=== PATIENT | female | born 1995 | race Caucasian/White ===

== ENCOUNTER → 2020-03-14 | Outpatient (CLI) | payer OTHER ==
[2020-03-14 17:00] LABS: HCT 33.2 % (34.0-46.0); HGB 11.7 gm/dL (11.4-16.0); MCH 33.6 pg (25.0-35.0); MCHC 35.2 g/dL (31.0-37.0); MCV 95.5 fL (80.0-100.0); Mean Platelet Volume 7.7; Platelet Count 200 k/uL (150-450); RBC 3.48 m/uL (3.80-5.40); RDW 12.1 % (11.5-15.5); WBC 16.8 k/uL (3.8-10.6)
== END | disposition home or self-care (01) ==
LOC: LABWHC1 15:43
PROVIDERS: ATTEND Obstetrics & Gynecology
DX: Z34.82 Encounter for supervision of other normal pregnancy, second trimester (principal)
CPT/HCPCS: 36415; 85027; 86900; 86901

== ENCOUNTER 2020-05-28 04:08 | Inpatient (IN) | payer OTHER ==
[2020-05-28] MEDS ORDERED: METHYLERGONOVINE 0.2 MG/ML 1 ML AMP IM PRN (04:53)
[2020-05-28] MEDS ORDERED: TERBUTALINE 1 MG/ML VIAL SQ PRN (04:53)
[2020-05-28] MEDS ORDERED: OXYTOCIN 10 UNIT/ML 1 ML VIAL IM PRN (04:53)
[2020-05-28] MEDS ORDERED: LIDOCAINE 0.5% (PF) 5 MG/ML (50 ML SDV) SQ PRN (04:53)
[2020-05-28] MEDS ORDERED: CARBOPROST TROMETHAMINE 250 MCG/ML 1 ML AMP IM PRN (04:53)
[2020-05-28] MEDS ORDERED: AMPICILLIN 2,000 MG in SODIUM CHLORIDE 0.9% 100 ML IVPB ONE (05:00)
[2020-05-28] MEDS ORDERED: OXYTOCIN 30 UNITS/500 ML NS 30 UNIT in SALINE 1 500ML.BAG IV SCH ×2 (05:00→16:15)
[2020-05-28 05:20] LABS: Glucose,Whole Blood 84 mg/dL (75-99)
[2020-05-28] MEDS: LACTATED RINGERS 1,000 ML IV SCH ×3 (05:37→14:24)
[2020-05-28 05:38] LABS: Basophils % (A) 0 %; Eosinophils # (A) 0.1 k/uL (0-0.7); Eosinophils % (A) 1 %; HCT 34.4 % (34.0-46.0); HGB 11.4 gm/dL (11.4-16.0); Lymphocytes # (A) 2.1 k/uL (1.0-4.8); Lymphocytes % (A) 20 %; MCH 31.5 pg (25.0-35.0); MCV 95.3 fL (80.0-100.0); Mean Platelet Volume 9.5; Monocytes # (A) 0.5 k/uL (0-1.0); Monocytes % (A) 5 %; Neutrophils # (A) 7.5 k/uL (1.3-7.7); Neutrophils % (A) 72 %; Platelet Count 192 k/uL (150-450); RBC 3.61 m/uL (3.80-5.40); RDW 12.8 % (11.5-15.5); WBC 10.4 k/uL (3.8-10.6)
[2020-05-28 05:49] LABS: Amphetamine Screen,Urine Detected (NotDetected); Barbiturate Screen,Urine Not Detected (NotDetected); Benzodiazepines Screen,Urine Not Detected (NotDetected); Cocaine Screen,Urine Not Detected (NotDetected); Methadone Screen, Urine Not Detected (NotDetected); Opiate Screen,Urine Not Detected (NotDetected); Oxycodone Screen, Urine Not Detected (NotDetected); Phencyclidine Screen,Urine Not Detected (NotDetected); Tricyclic Antidepressant,Urine Not Detected (NotDetected); Urn Cannabinoid Scrn Not Detected (NotDetected)
[2020-05-28] MEDS ORDERED: SODIUM CHLORIDE 0.9% 100 ML BAG ONE (07:11)
[2020-05-28] MEDS ORDERED: ROPIVACAINE 5MG/ML 20ML VIAL ONE (07:11)
[2020-05-28] MEDS ORDERED: fentaNYL (PF) 50 MCG/ML 5 ML AMP ONE (07:11)
--- NOTE | 2020-05-28 07:27 | P.HPOB ---
History of Present Illness H&P Date: 05/28/20 Chief Complaint: Spontaneous rupture of membranes This is a 24-year-old female 3 para 1 with an estimated date of confinement of 06/02/2020, estimated gestational age of 39-2/7 weeks, who presents to labor and delivery with complaints of spontaneous rupture membranes at approximately 2 AM this morning. Began feeling contractions regularly after arrival to the hospital. Her care has been spotty. She started her at Dr. angela lewis and had an ultrasound at 10 weeks but then did not come back to see that doctor until she transferred to see me. I began her care at 25 weeks. She showed up for another visit at 29 weeks and then at 34 weeks and then this recently yesterday. With her first visit with me she told me that she had been a previous meth user but quit almost 2 years ago. Her drug screen that date did show positive for cocaine and methamphetamine. She did admit that she did take 1 head of meth about a week ago because she was stressed about her grandfather in the hospital but that was after drug screen was done. Her drug screen continued to show positive for methamphetamine even at her next visit at 34 weeks. She still denies using any methamphetamine. She did not complete her Glucola test. labs: Obstetrical ultrasound: Normal anatomy Random glucose-81 Hepatitis B surface antigen-negative Hepatitis C antibody-negative Rubella-nonimmune Syphilis antibody-negative HIV-nonreactive GC/chlamydia-negative Blood type-A- RhoGAM given at 29 weeks Group B wdgpdhtqonrvn-aknpxlh-nhmfjubmi yesterday Obstetrical history: . History of 1 vaginal delivery at 41 weeks in 2012 with an weight of 9 lbs. 11 oz. History of 1 miscarriage at 9 weeks in 2013. Gynecologic history: No history of sexual transmitted diseases Social history: She is engaged. Apparently the father of the baby is incarcerat ed and will be for the next 2 years. She states the father of the baby is a "sperm donor". 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 Patient denies using currently. Drug screen was performed in my office yesterday and results are pending. - Past Family History Mother Family Medical History: Liver Disease Additional Family Medical History / Comment(s): 2nd generation agent orange exposure, manic depression, Medications and Allergies Home Medications Medication Instructions Recorded Confirmed Type Pnv No.95/Ferrous Fum/Folic AC 1 tab PO DAILY 05/28/20 05/28/20 History [ Multivitamin Tablet] Allergies Allergy/AdvReac Type Severity Reaction Status Date / Time No Known Allergies Allergy Verified 05/28/20 04:15 Exam Osteopathic Statement: *. No significant issues noted on an osteopathic structural exam other than those noted in the History and Physical/Consult. Vital Signs Temp Pulse Resp BP Pulse Ox 05/28/20 05:25 97.6 F 76 18 130/87 97 05/28/20 04:57 97.2 F L 78 16 142/90 Intake and Output 05/27/20 05/28/20 05/28/20 22:59 06:59 14:59 Other: # Voids 1 Weight 70.76 kg HEENT: Within normal limits Heart: Regular rate and rhythm Lungs: Clear to auscultation bilaterally Abdomen: Cervix: 3-3-1/2 cm/70%/-2 station. Clear fluid is noted. Positive amnisure is noted. Extremities: Negative Homans heart tones: Reactive, category 1 Contractions: Approximately every 3 minutes Results Result Diagrams: 05/28/20 05:07 Abnormal Lab Results - Last 24 Hours (Table) 05/28/20 05/28/20 Range/Units 05:07 05:07 RBC 3.61 L (3.80-5.40) m/uL Ur Amphetamines Screen Detected H (NotDetected) U Methamphetamines Scrn Detected H (NotDetected) Assessment and Plan (1) 39 weeks gestation of Current Visit: Yes Status: Acute Code(s): Z3A.39 - 39 WEEKS GESTATION OF SNOMED Code(s): 61886279 (2) Limited care Current Visit: Yes Status: Acute Code(s): O09.30 - SUPRVSN OF PREG W INSUFFICIENT ANTENAT CARE, UNSP TRIMESTER SNOMED Code(s): 716210724 (3) Positive urine drug screen Current Visit: Yes Status: Acute Code(s): R82.5 - ELEVATED URINE LEVELS OF DRUG/MEDS/BIOL SUBST SNOMED Code(s): 306253821 Plan: Admission for active labor. Epidural anesthesia. Antibiotic prophylaxis secondary to unknown group B streptococcus. Expectant management. Will consult psychiatric social worker supervisor after delivery.
--- NOTE | 2020-05-28 08:44 | P.MSEPDOC ---
Presenting Problems - Arrival Data Date of Arrival on Unit: 05/28/20 Time of Arrival on Unit: 04:09 Mode of Transport: Wheelchair - Complaint OB-Reason for Admission/Chief Complaint: Possible Onset of Labor, Rule Out SROM Medical History - Information : 3 Para: 1 Term: 1 : 0 Abortions: Spontaneous or Elective: 1 Number of Living Children: 1 - Gestational Age Gestational Age by JANELLE (wks/days): 39 Weeks and 2 Days - History Complications: Smoker, Hx. Substance Abuse Comment: Hx meth and cocaine use, limited care Review of Systems - Review of Systems Constitutional: No problems Breast: No problems ENT: No problems Cardiovascular: No problems Respiratory: No problems Gastrointestinal: No problems Genitourinary: No problems Musculoskeletal: No problems Neurological: No problems Skin: No problems Vital Signs - Temperature Temperature: 97.6 F Temperature Source: Temporal Artery Scan - Pulse Right Supine Brachial Pulse Rate: 76 Pulse Assessment Method: Automatic Cuff - Respirations Respiratory Rate: 18 Oxygen Delivery Method: Room Air O2 Sat by Pulse Oximetry: 97 - Blood Pressure Right Arm Supine Blood Pressure: 130/87 Blood Pressure Mean: 101 Blood Pressure Source: Automatic Cuff Medical Screen Scoring (Pre) - Cervical Exam Dilation: 1-3 cm = 1 Membranes: Ruptured = 3 - Uterine Contractions Frequency: > or = 36 weeks =2 Duration: > 40 seconds = 2 - Maternal Vital Signs Maternal Temperature: N/A Maternal Blood Pressure: Diastolic > 89 = 1 Maternal Respirations: N/A - Maternal Trauma Maternal Trauma: N/A - Assessment - Baby A Baseline FHR: 135 Heart Rate - NICHD Category: Category I (Normal) = 0 NST: Reactive Position: N/A Station: N/A - Total Score - Baby A Total Score - Baby A: 9 - Total Score - Baby B Total Score - Baby B: 9 - Total Score - Baby C Total Score - Baby C: 9 - Level of Risk - Baby A Level of Risk - Baby A: Medium (6-9) - Level of Risk - Baby B Level of Risk - Baby B: Medium (6-9) - Level of Risk - Baby C Level of Risk - Baby C: Medium (6-9) Physician Notification (Pre) - Physician Notified Physician Notified Date: 05/28/20 Physician Notified Time: 04:50 New Order Received: Yes - Notification Comment Comment: Admit for labor amnisure positive Disposition - Disposition OB Disposition: Admit, LDRP Suite I agree with the RN Medical Screening Exam: Yes Case reviewed; plan agreed upon as documented in EMR&OBIX.: Yes Diagnosis: ENCOUNTER FOR FULL-TERM UNCOMPLICATED DELIVERY
[2020-05-28] MEDS: AMPICILLIN 1,000 MG in SODIUM CHLORIDE 0.9% 50 ML IVPB SCH ×2 (08:58→12:56)
[2020-05-28 15:41] VITALS: RESP 16
[2020-05-28] MEDS ORDERED: diphenhydrAMINE 50 MG/ML 1 ML VIAL IVP PRN ×2 (16:02)
[2020-05-28] MEDS ORDERED: ACETAMINOPHEN TAB 325 MG TAB PO PRN (16:02)
[2020-05-28] MEDS ORDERED: SIMETHICONE 80 MG CHEWABLE PO PRN (16:02)
[2020-05-28] MEDS ORDERED: HYDROCORTISONE 2.5% RECTAL CREAM 30 GM TUBE RECTAL PRN (16:02)
[2020-05-28] MEDS ORDERED: ZOLPIDEM 5 MG TAB PO PRN (16:02)
[2020-05-28] MEDS ORDERED: diphenhydrAMINE 25 MG CAP PO PRN (16:02)
[2020-05-28] MEDS ORDERED: BENZOCAINE/MENTHOL SPRAY 1 GM/SPRAY AEROSOL TOPICAL PRN (16:02)
[2020-05-28] MEDS ORDERED: IBUPROFEN 600 MG TAB PO PRN (16:02)
[2020-05-28] MEDS ORDERED: LANOLIN CREAM 5 GM TUBE TOPICAL PRN (16:02)
[2020-05-28] MEDS ORDERED: diphenhydrAMINE 50 MG CAP PO PRN (16:02)
--- NOTE | 2020-05-28 17:15 | P.PROBDLV ---
Vaginal Delivery Note - . Vaginal Delivery Note: This is a 24-year-old female 3 para 1 with an estimated date of confinement of 06/02/2020, estimated gestational age of 39-2/7 weeks, who presents to labor and delivery with complaints of spontaneous rupture membranes at approximately 2 AM this morning. Began feeling contractions regularly after arrival to the hospital. Rupture was confirmed with amnio sure and she was admitted for labor. Her cervix was 3-4 centers dilated, 50% effaced, and -2 station. She didn't make much cervical change after a couple hours so Pitocin was started. When she was uncomfortable she did get an epidural. She was started on antibiotics for GBS unknown status. Her cervix was completely dilated at 1340. She pushed, delivered a viable female infant over intact perineum under epidural anesthesia at 1349. Head delivered OA, nuchal cord 1 easily reduced, anterior shoulder delivered gentle downward guidance followed by posterior shoulder and rest of body. Nose and mouth bulb suctioned, cord clamped and cut, infant placed on mother's abdomen. Apgars 9, 9, weight 7 lbs. 14 oz. Placenta delivered spontaneously, intact with three-vessel cord at 1351. Vagina, cervix, and perineum were inspected. Right labial laceration was repaired with 3-0 Vicryl. Estimated blood loss 200 mL. Mother and baby in stable condition.
[2020-05-28] MEDS: SENNOSIDES-DOCUSATE SODIUM 1 EACH TAB PO SCH (19:54)
[2020-05-29 02:08] LABS: Hemoglobin A1C 5.2 % (4.0-6.0)
[2020-05-29 07:08] LABS: Basophils % (A) 0 %; Eosinophils # (A) 0.1 k/uL (0-0.7); Eosinophils % (A) 1 %; HCT 33.4 % (34.0-46.0); HGB 11.2 gm/dL (11.4-16.0); Lymphocytes # (A) 2.8 k/uL (1.0-4.8); Lymphocytes % (A) 20 %; MCH 32.2 pg (25.0-35.0); MCHC 33.6 g/dL (31.0-37.0); Mean Platelet Volume 9.3; Monocytes # (A) 0.6 k/uL (0-1.0); Monocytes % (A) 4 %; Neutrophils # (A) 10.3 k/uL (1.3-7.7); Neutrophils % (A) 74 %; Platelet Count 171 k/uL (150-450); RBC 3.48 m/uL (3.80-5.40); RDW 12.7 % (11.5-15.5); WBC 13.9 k/uL (3.8-10.6)
[2020-05-29 08:36] VITALS: BP 104/66; PULSE 77; TEMP 98.8
[2020-05-29] MEDS: SENNOSIDES-DOCUSATE SODIUM 1 EACH TAB PO SCH (08:39)
--- NOTE | 2020-05-29 09:08 | P.DS ---
Providers Date of admission: 05/28/20 04:51 Expected date of discharge: 05/29/20 Attending physician: Stella Pillai Primary care physician: Stated None - Discharge Diagnosis(es) (1) 39 weeks gestation of Current Visit: Yes Status: Acute (2) Limited care Current Visit: Yes Status: Acute (3) Positive urine drug screen Current Visit: Yes Status: Acute Hospital Course: This is a 24-year-old female 3 para 1 at 39-2/7 weeks who presented with spontaneous rupture of membranes. She delivered vaginally a viable female infant on 05/28/2020 with scores of 9 at 1 minute and 9 at 5 minutes and weight of 7 lbs. 14 oz. Her course has been essentially uncomplicated. Her pain is been fairly well-controlled with ibuprofen. Lochia is decreasing. She is bottle feeding. Her baby is in the level I nursery due to drug withdrawal. Patient's drug screen was positive for methamphetamines and amphetamines. Patient denies using any of these drugs. She is aware that social media marketing specialist will see her prior to discharge. Her vital signs are stable. Abdomen is soft with fundus firm and nontender. Extremities show negative Homans. Impression is status post vaginal delivery day #1. Plan is to discharge home today. Routine instructions are given. She will be given a prescription for ibuprofen. She is advised follow-up in the office in 6 weeks for a check. She is advised to call the office if she has any further questions or concerns prior to her appointment time. Procedures: Spontaneous vaginal delivery of a viable female infant on 05/28/2020 Patient Condition at Discharge: Stable Plan - Discharge Summary New Discharge Prescriptions: New Ibuprofen [Motrin] 600 mg PO Q6HR PRN #60 tab PRN Reason: Mild Pain Or Fever >= 100.5 Continue Pnv No.95/Ferrous Fum/Folic AC [ Multivitamin Tablet] 1 tab PO DAILY Discharge Medication List Pnv No.95/Ferrous Fum/Folic AC [ Multivitamin Tablet] 1 tab PO DAILY 05/28/20 [History] Ibuprofen [Motrin] 600 mg PO Q6HR PRN #60 tab 05/29/20 [Rx] Follow up Appointment(s)/Referral(s): Stella Pillai DO [Doctor of Osteopathic Medicine] - 6 Weeks Activity/Diet/Wound Care/Special Instructions: Instructions 1. Do not begin any exercise program for 3 weeks. 2. Do not resume sexual relations for 3 weeks or longer if uncomfortable. 3. You may take tub baths or showers at any time. 4. You may use tampons if desired after 3 weeks. 5. Keep the area of episiotomy (stitches) clean and dry. 6. If you are not nursing, wear a good fitting, supportive bra during the day and limit fluid intake for at least 1 week to prevent breast engorgement. 7. Call the office, [phone], within the next week to make appointment for your 6 week checkup if it has not already been made. 8. Report any of the following occurrences to the doctor promptly: a. Heavy, excessive bleeding b. Chills, fever c. Burning or frequency of urination d. Pain or redness and breasts if nursing e. Increasing pain or swelling in episiotomy (stitches). In addition to the above instructions, the following additional should be followed: 1. No heavy lifting or straining (exercising) until after 6 week checkup. 2. Keep abdominal incision clean and dry: You may wear a dressing if more c omfortable. 3. Make office appointment for 10 days after going home or as instructed by her doctor. Discharge Disposition: HOME SELF-CARE
== END 2020-05-29 13:30 | disposition home or self-care (01) | DRG 806 ==
LOC: FBPOP 04:08 → 4FBP 04:51
PROVIDERS: ADMIT Obstetrics & Gynecology; ATTEND Obstetrics & Gynecology
PROC: 10E0XZZ Delivery of Products of Conception, External Approach (ICD-10-PCS; principal; 2020-05-28)
PROC: 0HQ9XZZ Repair Perineum Skin, External Approach (ICD-10-PCS; 2020-05-28)
PROC: 3E0R3BZ Introduction of Anesthetic Agent into Spinal Canal, Percutaneous Approach (ICD-10-PCS; 2020-05-28)
DX: O69.81X0 Labor and delivery complicated by cord around neck, without compression, not applicable or unspecified (principal); O99.324 Drug use complicating childbirth; Z37.0 Single live birth; Z87.59 Personal history of other complications of pregnancy, childbirth and the puerperium; F32.9 Major depressive disorder, single episode, unspecified; F41.9 Anxiety disorder, unspecified; O99.344 Other mental disorders complicating childbirth; F17.200 Nicotine dependence, unspecified, uncomplicated; O99.334 Smoking (tobacco) complicating childbirth; O70.0 First degree perineal laceration during delivery; F14.10 Cocaine abuse, uncomplicated; Z3A.39 39 weeks gestation of pregnancy; Z79.899 Other long term (current) drug therapy; Z83.79 Family history of other diseases of the digestive system
CPT/HCPCS: 59025; 80306; 83036; 84112; 85025; 86850; 86900; 86901; 88307; 99213

== ENCOUNTER 2022-04-05 18:45 | Outpatient (CLI) | payer OTHER ==
[2022-04-05 20:22] LABS: Appearance,Urine Turbid (Clear); Bacteria,Urine Rare /hpf; Bilirubin,Urine Negative (Negative); Blood,Urine Large (Negative); Color,Urine Red; Glucose,Urine (UA) Negative (Negative); Ketones,Urine Negative (Negative); Leukocyte Esterase,Urine Large (Negative); Mucus,Urine Many /hpf; Nitrite,Urine Positive (Negative); Protein,Urine 1+ (Negative); RBC,Urine >182 /hpf (0-5); Specific Gravity,Urine 1.021 (1.001-1.035); Urobilinogen,Urine <2.0 mg/dL (<2.0); WBC,Urine >182 /hpf (0-5)
[2022-04-05 20:51] LABS: Amphetamine Screen,Urine Not Detected (NotDetected); Barbiturate Screen,Urine Not Detected (NotDetected); Benzodiazepines Screen,Urine Not Detected (NotDetected); Cocaine Screen,Urine Not Detected (NotDetected); Methadone Screen, Urine Not Detected (NotDetected); Opiate Screen,Urine Not Detected (NotDetected); Oxycodone Screen, Urine Not Detected (NotDetected); Phencyclidine Screen,Urine Not Detected (NotDetected); Tricyclic Antidepressant,Urine Not Detected (NotDetected); Urn Cannabinoid Scrn Not Detected (NotDetected)
[2022-04-05 21:21] VITALS: BP 126/70; PULSE 94; RESP 16; TEMP 99
--- NOTE | 2022-04-28 12:19 | P.MSEPDOC ---
Presenting Problems - Arrival Data Date of Arrival on Unit: 04/05/22 Time of Arrival on Unit: 18:45 Mode of Transport: Ambulatory - Complaint OB-Reason for Admission/Chief Complaint: Signs/Symptoms UTI Medical History - Information : 4 Para: 2 Abortions: Spontaneous or Elective: 1 Number of Living Children: 2 - Gestational Age Gestational Age by JANELLE (wks/days): 21 Weeks and 5 Days - History Complications: Smoker, Hx. Substance Abuse Review of Systems - Review of Systems Constitutional: No problems Breast: No problems ENT: No problems Cardiovascular: No problems Respiratory: No problems Gastrointestinal: No problems Genitourinary: Urgency, Increased frequency Musculoskeletal: No problems Neurological: No problems Skin: No problems Comment: Pt reports pink urine and abdominal cramping. Vital Signs - Temperature Temperature: 99.0 F Temperature Source: Temporal Artery Scan - Pulse Pulse Oximetery Pulse Rate: 94 Pulse Assessment Method: Pulse Oximetry - Respirations Respiratory Rate: 16 Oxygen Delivery Method: Room Air - Blood Pressure Right Arm Blood Pressure: 126/70 Blood Pressure Mean: 88 Blood Pressure Source: Automatic Cuff Medical Screen Scoring - Cervical Exam Membranes: Intact - Assessment - Baby A Baseline FHR: 140 Physician Notification - Physician Notified Physician Notified Date: 04/05/22 Physician Notified Time: 19:25 Physician: Kevin Urbina New Order Received: Yes - Notification Comment Comment: Dr. Urbina notified of pt's arrival to triage with complaint of pink urine and. cramping. Report given including maternal and status. Orders to send a UA and. urine tox screen. RN discussed POC with pt who verbalized understanding and agreement. Maternal Triage Index - Maternal Triage Index Presenting for scheduled procedure w/no complaint: No - Stat/Priority 1 Stat Priority 1: No - Urgent/Priority 2 Urgent Priority 2: No - Prompt/Priority 3 Prompt Priority 3: No - Non-Urgent/Priority 4 Non-Urgent Priority 4: Yes Criteria Met for Priority 4: S/S of UTI Disposition - Disposition OB Disposition: Triage Discharge Date: 04/05/22 Discharge Time: 19:47 I agree with the RN Medical Screening Exam: Yes Case reviewed; plan agreed upon as documented in EMR&OBIX.: Yes Diagnosis: RELATED CONDITIONS, UNSPECIFIED, SECOND TRIMESTER
== END 2022-04-05 21:47 ==
LOC: FBPOP 18:45
PROVIDERS: ATTEND Obstetrics & Gynecology
DX: O26.92 Pregnancy related conditions, unspecified, second trimester (principal); Z3A.21 21 weeks gestation of pregnancy; R10.9 Unspecified abdominal pain
CPT/HCPCS: 96361; 96365; 81001; 80306; G0463; J0690; 99214

== ENCOUNTER 2022-07-26 18:12 | Outpatient (CLI) | payer OTHER ==
[2022-07-26 19:12] VITALS: BP 134/80; PULSE 104; RESP 16; TEMP 98.1
--- NOTE | 2022-07-28 05:43 | P.MSEPDOC ---
Presenting Problems - Arrival Data Date of Arrival on Unit: 07/26/22 Time of Arrival on Unit: 18:12 Mode of Transport: Ambulatory - Complaint OB-Reason for Admission/Chief Complaint: Rule Out PROM, Decreased Movement Comment: no movement since this am, leaking x2days with position changes, cramping Medical History - Information : 4 Para: 2 Term: 2 : 0 Abortions: Spontaneous or Elective: 1 Number of Living Children: 2 - Gestational Age Gestational Age by JANELLE (wks/days): 37 Weeks and 5 Days - History Complications: Smoker Review of Systems - Review of Systems Constitutional: No problems Breast: No problems ENT: No problems Cardiovascular: No problems Respiratory: No problems Gastrointestinal: No problems Genitourinary: No problems Musculoskeletal: No problems Neurological: No problems Skin: No problems Vital Signs - Temperature Temperature: 98.1 F Temperature Source: Oral - Pulse Right Pulse Rate: 104 Pulse Assessment Method: Automatic Cuff - Respirations Respiratory Rate: 16 Oxygen Delivery Method: Room Air O2 Sat by Pulse Oximetry: 98 - Blood Pressure Right Arm Sitting Blood Pressure: 134/80 Blood Pressure Mean: 98 Blood Pressure Source: Automatic Cuff Medical Screen Scoring - Cervical Exam Dilation (cm): 1 Effacement (%): 0 Station: -3 Membranes: Intact - Uterine Contractions Frequency From (mins): 0 - Assessment - Baby A Baseline FHR: 135 Heart Rate - NICHD Category: Category I (Normal) NST: Reactive Physician Notification - Physician Notified Physician Notified Date: 07/26/22 Physician Notified Time: 19:00 Physician: Mayra Lynch Order Received: Yes (d/c with instruction) Maternal Triage Index - Non-Urgent/Priority 4 Non-Urgent Priority 4: Yes Criteria Met for Priority 4: 37 5/7 decreased movment, leaking, cramping Disposition - Disposition OB Disposition: Triage, Discharge to home Discharge Date: 07/26/22 Discharge Time: 19:05 I agree with the RN Medical Screening Exam: Yes Case reviewed; plan agreed upon as documented in EMR&OBIX.: Yes Diagnosis: rule out labor
== END 2022-07-26 19:05 | disposition home or self-care (01) ==
LOC: FBPOP 18:12
PROVIDERS: ATTEND Obstetrics & Gynecology
DX: O47.03 False labor before 37 completed weeks of gestation, third trimester (principal); F17.200 Nicotine dependence, unspecified, uncomplicated; Z3A.37 37 weeks gestation of pregnancy; O99.333 Smoking (tobacco) complicating pregnancy, third trimester
CPT/HCPCS: 59025; 84112; G0463; 99213

== ENCOUNTER 2022-07-30 14:40 | Outpatient (CLI) | payer OTHER ==
[2022-07-30 15:52] VITALS: BP 127/77; PULSE 95; RESP 16; TEMP 97.6
--- NOTE | 2022-08-10 18:06 | P.MSEPDOC ---
Presenting Problems - Arrival Data Date of Arrival on Unit: 07/30/22 Time of Arrival on Unit: 14:40 Mode of Transport: Ambulatory - Complaint OB-Reason for Admission/Chief Complaint: Rule Out SROM Comment: pt states she had large gush of clear fluid at 1230 Medical History - Information : 4 Para: 2 Term: 2 : 0 Abortions: Spontaneous or Elective: 1 Number of Living Children: 2 - Gestational Age Gestational Age by JANELLE (wks/days): 38 Weeks and 2 Days - History Complications: Smoker Review of Systems - Review of Systems Constitutional: No problems Breast: No problems ENT: No problems Cardiovascular: No problems Respiratory: No problems Gastrointestinal: No problems Genitourinary: No problems Musculoskeletal: No problems Neurological: No problems Skin: No problems Vital Signs - Temperature Temperature: 97.6 F Temperature Source: Temporal Artery Scan - Pulse Right Brachial Pulse Rate: 95 Pulse Assessment Method: Automatic Cuff - Respirations Respiratory Rate: 16 Oxygen Delivery Method: Room Air O2 Sat by Pulse Oximetry: 97 - Blood Pressure Right Arm Blood Pressure: 127/77 Blood Pressure Mean: 93 Blood Pressure Source: Automatic Cuff Medical Screen Scoring - Cervical Exam Dilation (cm): 2 Effacement (%): 50 Membranes: Intact - Assessment - Baby A Baseline FHR: 135 Heart Rate - NICHD Category: Category I (Normal) NST: Reactive Physician Notification - Physician Notified Physician Notified Date: 07/30/22 Physician Notified Time: 15:35 Physician: Amy Denton New Order Received: Yes (dc home) Maternal Triage Index - Non-Urgent/Priority 4 Non-Urgent Priority 4: Yes Criteria Met for Priority 4: amnisure negative Disposition - Disposition OB Disposition: Discharge to home, Written follow up instructions reviewed Discharge Date: 07/30/22 Discharge Time: 15:52 I agree with the RN Medical Screening Exam: Yes Case reviewed; plan agreed upon as documented in EMR&OBIX.: Yes Diagnosis: FALSE LABOR AT OR AFTER 37 COMPLETED WEEKS OF GESTATION
== END 2022-07-30 15:53 | disposition home or self-care (01) ==
LOC: FBPOP 14:40
PROVIDERS: ATTEND Obstetrics & Gynecology Obstetrics
DX: O47.1 False labor at or after 37 completed weeks of gestation (principal); O99.333 Smoking (tobacco) complicating pregnancy, third trimester; F17.200 Nicotine dependence, unspecified, uncomplicated; Z3A.38 38 weeks gestation of pregnancy
CPT/HCPCS: 59025; 84112; G0463; 99213

== ENCOUNTER 2022-08-10 01:42 | Inpatient (IN) | payer OTHER ==
[2022-08-10] MEDS ORDERED: LIDOCAINE 0.5% (PF) 5 MG/ML (50 ML SDV) SQ PRN (02:06)
[2022-08-10] MEDS ORDERED: OXYTOCIN 10 UNIT/ML 1 ML VIAL IM PRN (02:06)
[2022-08-10] MEDS ORDERED: miSOPROStoL 200 MCG TAB PO PRN (02:06)
[2022-08-10] MEDS ORDERED: METHYLERGONOVINE 0.2 MG/ML 1 ML AMP IM PRN (02:06)
[2022-08-10] MEDS ORDERED: TERBUTALINE 1 MG/ML VIAL SQ PRN (02:06)
[2022-08-10] MEDS ORDERED: TRANEXAMIC ACID IN NACL,ISO-OS 1,000 MG in EMPTY BAG 1 BAG IV PRN (02:06)
[2022-08-10] MEDS ORDERED: CARBOPROST TROMETHAMINE 250 MCG/ML 1 ML AMP IM PRN (02:06)
[2022-08-10] MEDS ORDERED: OXYTOCIN 30 UNITS/500 ML NS 30 UNIT in SALINE 1 500ML.BAG IV SCH (02:15)
[2022-08-10] MEDS: LACTATED RINGERS 1,000 ML IV SCH ×2 (02:30→03:47)
[2022-08-10 03:16] LABS: Basophils % (A) 0 %; Eosinophils # (A) 0.1 k/uL (0-0.7); Eosinophils % (A) 1 %; HCT 32.6 % (34.0-46.0); HGB 11.2 gm/dL (11.4-16.0); Lymphocytes % (A) 16 %; MCH 30.8 pg (25.0-35.0); MCHC 34.5 g/dL (31.0-37.0); MCV 89.4 fL (80.0-100.0); Mean Platelet Volume 9.3; Monocytes # (A) 0.6 k/uL (0-1.0); Monocytes % (A) 5 %; Neutrophils # (A) 9.7 k/uL (1.3-7.7); Neutrophils % (A) 76 %; Platelet Count 205 k/uL (150-450); RBC 3.64 m/uL (3.80-5.40); WBC 12.7 k/uL (3.8-10.6)
[2022-08-10 03:17] LABS: Amphetamine Screen,Urine Not Detected (NotDetected); Barbiturate Screen,Urine Not Detected (NotDetected); Benzodiazepines Screen,Urine Not Detected (NotDetected); Cocaine Screen,Urine Not Detected (NotDetected); Methadone Screen, Urine Not Detected (NotDetected); Opiate Screen,Urine Not Detected (NotDetected); Oxycodone Screen, Urine Not Detected (NotDetected); Phencyclidine Screen,Urine Not Detected (NotDetected); Tricyclic Antidepressant,Urine Not Detected (NotDetected); Urn Cannabinoid Scrn Not Detected (NotDetected)
[2022-08-10] MEDS ORDERED: fentaNYL (PF) 50 MCG/ML 5 ML AMP ONE (03:20)
[2022-08-10] MEDS ORDERED: SODIUM CHLORIDE 0.9% 100 ML BAG ONE (03:20)
[2022-08-10] MEDS ORDERED: ROPIVACAINE 5 MG/ML 20 ML AMPULE ONE (03:20)
[2022-08-10] MEDS ORDERED: ROPIVACAINE 225 MG, fentaNYL (PF). 450 MCG in SODIUM CHLORIDE 0.9% 171 ML EPIDURAL ONE (03:42)
[2022-08-10] MEDS ORDERED: PENICILLIN G POTASSIUM 5,000,000 UNIT in DEXTROSE 5% IN WATER 100 ML IVPB STA ×2 (06:09)
[2022-08-10 08:44] VITALS: RESP 16
--- NOTE | 2022-08-10 08:56 | P.HPOB ---
History of Present Illness H&P Date: 08/10/22 Chief Complaint: contractions Ms. Horan is a 26 year old at 39 weeks and 6 days who presents in labor and after sponatenous rupture of membranes around noon on 08/09. has been complicated by late presentation to care (23 weeks), intermittent methamphetamine use, and a history of anxiety and depression. The fetus has also been suspected to be small for gestational age, measuring in the 18%ile on most recent ultrasound at 34 weeks. The patient has also used tobacco throughout the despite counseling. Obstetric history: 2 full term vaginal deliveries, 1 SAB Maternal serologies: blood type A negative, antibody screen negative, rubella non-immune, VDRL non-reacitve, HBsAg negative, HIV negative, 1 hour GTT 91, GBS negative Past Medical History Past Medical History: No Reported History Additional Past Medical History / Comment(s): 3rd generation agent orange expos ure History of Any Multi-Drug Resistant Organisms: None Reported Past Surgical History: Tonsillectomy Additional Past Surgical History / Comment(s): ear tubes Past Anesthesia/Blood Transfusion Reactions: No Reported Reaction Past Psychological History: Anxiety, Depression Smoking Status: Current every day smoker Past Alcohol Use History: None Reported Past Drug Use History: Methamphetamine Additional Drug Use History / Comment(s): History of drug screen positive for methamphetamines and cocaine. Patient denies using currently. Urine Drug screen was done on admission to the unit, positive for methamphetamines. - Past Family History Mother Family Medical History: Liver Disease Additional Family Medical History / Comment(s): 2nd generation agent orange exposure, manic depression, Medications and Allergies Home Medications Medication Instructions Recorded Confirmed Type Vit No.179/Iron/Folic 1 tablet PO DAILY 07/30/22 08/10/22 History [ Tablet] Allergies Allergy/AdvReac Type Severity Reaction Status Date / Time No Known Allergies Allergy Verified 08/10/22 01:52 Exam Vital Signs Temp Pulse Resp BP Pulse Ox 08/10/22 08:35 97.2 F L 101 H 16 121/71 08/10/22 02:25 97.7 F 101 H 18 126/76 97 08/10/22 01:51 97.7 F 101 H 18 126/76 97 Intake and Output 08/09/22 08/10/22 08/10/22 22:59 06:59 14:59 Output Total 150 Balance -150 Output: Estimated Blood Loss 150 Other: Weight 70.76 kg Focused physical exam is performed. Patient is breathing through contractions. Cervical exam is complete dilation and -1 head station. Clear amniotic fluid is noted to be leaking. heart tones are category I. Results Result Diagrams: 08/10/22 02:40 Abnormal Lab Results - Last 24 Hours (Table) 08/10/22 08/10/22 Range/Units 02:20 02:40 WBC 12.7 H (3.8-10.6) k/uL RBC 3.64 L (3.80-5.40) m/uL Hgb 11.2 L (11.4-16.0) gm/dL Hct 32.6 L (34.0-46.0) % Neutrophils # 9.7 H (1.3-7.7) k/uL U Methamphetamines Scrn Detected H (NotDetected) Assessment and Plan Assessment: 26 year old at 39 weeks and 4 days with SROM and in active labor Plan: Patient has been admitted by my partner overnight. Patient has received an epidural per her request. Will expectantly manage labor at this time. Continuous EFM. Patient received a dose of antibiotics for prolonged ruptured membranes. Time with Patient: Less than 30 (15 minutes)
--- NOTE | 2022-08-10 08:58 | P.PROBDLV ---
Vaginal Delivery Note - . Vaginal Delivery Note: DATE OF SERVICE: 08/10/2022 PROCEDURE: Spontaneous Vaginal Delivery ATTENDING: Dr. Romina Almaraz MD ESTIMATED BLOOD LOSS: 150 mL FINDINGS: VMI, Apgars 9/9, weight 7#4oz PROCEDURE: Patient was a 26 y/o who presented to labor and delivery in active labor after prolonged rupture of membranes. Antibiotics were given for prolonged rupture. The patient was expectantly managed. She received an epidural per her request. She quickly progressed to complete dilation. She moved the head very effectively with pushing. Head delivered without difficulty followed by shoulders and body over intact perineum. Infant placed on maternal abdomen and bulb suctioned. Cord was clamped and cut after a 60 second delay. Placenta delivered whole with gentle cord traction. Oxytocin was started to facilitate uterine tone. Uterine fundus firm and bleeding minimal upon fundal massage. Perineal inspection revealed 3 periurethral lacerations repaired with 3-0 Vicryl in the usual fashion. Excellent hemostasis noted after repair. Patient stable .
[2022-08-10] MEDS ORDERED: PENICILLIN G POTASSIUM 2,500,000 UNIT in DEXTROSE 5% IN WATER 100 ML IVPB SCH ×2 (10:15)
[2022-08-10] MEDS ORDERED: diphenhydrAMINE 50 MG/ML 1 ML VIAL IVP PRN ×2 (11:33)
[2022-08-10] MEDS ORDERED: BENZOCAINE/MENTHOL SPRAY 1 GM/SPRAY AEROSOL TOPICAL PRN (11:33)
[2022-08-10] MEDS ORDERED: MEASLES-MUMPS-RUBELLA VACC/PF 12,500 UNIT/0.5 ML VIAL SQ ONE (11:33)
[2022-08-10] MEDS ORDERED: LANOLIN CREAM 5 GM TUBE TOPICAL PRN (11:33)
[2022-08-10] MEDS ORDERED: diphenhydrAMINE 50 MG CAP PO PRN (11:33)
[2022-08-10] MEDS ORDERED: SIMETHICONE 80 MG CHEWABLE PO PRN (11:33)
[2022-08-10] MEDS ORDERED: ACETAMINOPHEN TAB 325 MG TAB PO PRN (11:33)
[2022-08-10] MEDS ORDERED: ZOLPIDEM 5 MG TAB PO PRN (11:33)
[2022-08-10] MEDS ORDERED: HYDROCORTISONE 2.5% RECTAL CREAM 30 GM TUBE RECTAL PRN (11:33)
[2022-08-10] MEDS ORDERED: diphenhydrAMINE 25 MG CAP PO PRN (11:33)
[2022-08-10] MEDS: SENNOSIDES-DOCUSATE SODIUM 1 EACH TAB PO SCH (20:31)
[2022-08-10] MEDS: IBUPROFEN 600 MG TAB PO PRN (23:57)
[2022-08-11 00:26] VITALS: PULSE 89
[2022-08-11 07:51] LABS: Basophils % (A) 0 %; Eosinophils # (A) 0.1 k/uL (0-0.7); Eosinophils % (A) 1 %; HCT 28.5 % (34.0-46.0); Lymphocytes # (A) 1.5 k/uL (1.0-4.8); Lymphocytes % (A) 15 %; MCH 30.2 pg (25.0-35.0); MCHC 33.4 g/dL (31.0-37.0); MCV 90.5 fL (80.0-100.0); Mean Platelet Volume 9.3; Monocytes # (A) 0.4 k/uL (0-1.0); Monocytes % (A) 4 %; Neutrophils # (A) 7.8 k/uL (1.3-7.7); Neutrophils % (A) 77 %; Platelet Count 148 k/uL (150-450); RBC 3.16 m/uL (3.80-5.40); RDW 14.3 % (11.5-15.5); WBC 10.2 k/uL (3.8-10.6)
[2022-08-11 07:58] LABS: HGB 9.5 gm/dL (11.4-16.0)
--- NOTE | 2022-08-11 08:33 | P.DS ---
Providers Date of admission: 08/10/22 02:10 Expected date of discharge: 08/11/22 Attending physician: Romina Almaraz MD Primary care physician: Stated None Hospital Course: 26 year old now day #1 s/p . The patient is doing well this morning and had no acute events overnight. She has no complaints this morning. She reports minimal lochia, passing flatus, voiding without difficulty, ambulating, and eating/drinking without nausea or vomiting. Infant in the nursery being scored for RADHA, taking formula. She denies chest pain, shortness of breathing, fevers, or chills overnight. She denies pain or swelling in the legs. She desires discharge home today. I counseled the patient on 6 weeks of pelvic rest. I encouraged her to call the office for heavy bleeding, foul- smelling vaginal discharge, breast complaints, or any other concerns. She will return to the clinic in 6 weeks for visit. All questions answered. Assessment: 26 year old PPD#1 s/p Patient Condition at Discharge: Good Plan - Discharge Summary Discharge Rx Participant: No New Discharge Prescriptions: No Action Vit No.179/Iron/Folic [ Tablet] 1 tablet PO DAILY Discharge Medication List Vit No.179/Iron/Folic [ Tablet] 1 tablet PO DAILY 07/30/22 [History] Follow up Appointment(s)/Referral(s): Romina Almaraz MD [STAFF PHYSICIAN] - 6 Weeks Patient Instructions/Handouts: Depression (DC), Perineal Care (DC), Bleeding (DC), Breast Care for the Non- Mother (DC) Activity/Diet/Wound Care/Special Instructions: Pelvic rest for 6 weeks Discharge Disposition: HOME SELF-CARE
[2022-08-11 09:40] VITALS: BP 120/65; TEMP 97.5
[2022-08-11] MEDS: SENNOSIDES-DOCUSATE SODIUM 1 EACH TAB PO SCH (09:45)
[2022-08-11] MEDS: IBUPROFEN 600 MG TAB PO PRN (09:46)
[2022-08-11] MEDS: Rhogam IMMUNE GLOBULIN 1,500 UNIT/1 ML IM ONE ×4 (11:48→11:54)
== END 2022-08-11 12:30 | disposition home or self-care (01) | DRG 560 ==
LOC: FBPOP 01:42 → 4FBP 02:10
PROVIDERS: ADMIT Obstetrics & Gynecology; ATTEND Obstetrics & Gynecology
PROC: 10E0XZZ Delivery of Products of Conception, External Approach (ICD-10-PCS; principal; 2022-08-10)
PROC: 0UQMXZZ Repair Vulva, External Approach (ICD-10-PCS; 2022-08-10)
PROC: 3E033VJ Introduction of Other Hormone into Peripheral Vein, Percutaneous Approach (ICD-10-PCS; 2022-08-10)
DX: O42.92 Full-term premature rupture of membranes, unspecified as to length of time between rupture and onset of labor (principal); F17.210 Nicotine dependence, cigarettes, uncomplicated; O36.5930 Maternal care for other known or suspected poor fetal growth, third trimester, not applicable or unspecified; F32.A Depression, unspecified; O99.344 Other mental disorders complicating childbirth; F41.9 Anxiety disorder, unspecified; O99.334 Smoking (tobacco) complicating childbirth; O99.324 Drug use complicating childbirth; F15.90 Other stimulant use, unspecified, uncomplicated; F14.90 Cocaine use, unspecified, uncomplicated; O62.3 Precipitate labor; O71.82 Other specified trauma to perineum and vulva; Z37.0 Single live birth; Z3A.39 39 weeks gestation of pregnancy
CPT/HCPCS: 59025; 80306; 84112; 85025; 85461; 86850; 86870; 86880; 86900; 86901; 90471; 90707; 99213

== ENCOUNTER 2023-09-13 03:36 | Emergency (ER) | payer OTHER ==
[2023-09-13 03:42] VITALS: RESP 16
[2023-09-13] MEDS: ACETAMINOPHEN TAB 500 MG TAB PO STA (04:41)
[2023-09-13] MEDS: SODIUM CHLORIDE 0.9% 1,000 ML IV ONE (04:43)
[2023-09-13 05:25] LABS: Basophils # (A) 0.1 k/uL (0-0.2); Basophils % (A) 1 %; Eosinophils % (A) 0 %; HCT 33.2 % (34.0-46.0); HGB 11.5 gm/dL (11.4-16.0); Lymphocytes # (A) 0.4 k/uL (1.0-4.8); Lymphocytes % (A) 4 %; MCH 32.8 pg (25.0-35.0); MCHC 34.5 g/dL (31.0-37.0); MCV 95.1 fL (80.0-100.0); Mean Platelet Volume 8.5; Monocytes # (A) 0.6 k/uL (0-1.0); Monocytes % (A) 5 %; Neutrophils # (A) 10.4 k/uL (1.3-7.7); Neutrophils % (A) 89 %; Platelet Count 133 k/uL (150-450); RBC 3.49 m/uL (3.80-5.40); RDW 11.7 % (11.5-15.5); WBC 11.7 k/uL (3.8-10.6)
--- NOTE | 2023-09-13 05:33 | ED ---
General Adult HPI - General Source: patient, RN notes reviewed, old records reviewed Mode of arrival: ambulatory Limitations: no limitations <Orlando Michaels - Last Filed: 09/13/23 06:13> <Arpita Flores - Last Filed: 09/17/23 06:38> - General Chief complaint: Abdominal Pain Stated complaint: Kidney infection Time Seen by Provider: 09/13/23 03:43 - History of Present Illness Initial comments: 27-year-old female presenting for evaluation of flank pain. Patient is currently approximately 10 weeks . She states she has had ultrasound at outside hospital which confirmed IUP. She denies dysuria but states that she feels as though she has a kidney infection which started in the right kidney and has progressed to both kidneys. Patient has had fever and chills. (Orlando Michaels) - Related Data Home Medications Medication Instructions Recorded Confirmed Vit No.179/Iron/Folic 1 tablet PO DAILY 07/30/22 08/10/22 [ Tablet] Previous Rx's Medication Instructions Recorded Cephalexin [Keflex] 500 mg PO Q6HR 1 Days #40 cap 09/13/23 Allergies Allergy/AdvReac Type Severity Reaction Status Date / Time No Known Allergies Allergy Verified 09/13/23 03:38 Review of Systems ROS Other: All systems not noted in ROS Statement are negative. <Orlando Michaels - Last Filed: 09/13/23 06:13> ROS Other: All systems not noted in ROS Statement are negative. <Arpita Flores - Last Filed: 09/17/23 06:38> ROS Statement: Those systems with pertinent positive or pertinent negative responses have been documented in the HPI. 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 History of Any Multi-Drug Resistant Organisms: None Reported Past Surgical History: Tonsillectomy Additional Past Surgical History / Comment(s): ear tubes Past Anesthesia/Blood Transfusion Reactions: No Reported Reaction Past Psychological History: Anxiety, Depression Smoking Status: Current every day smoker Past Alcohol Use History: None Reported Past Drug Use History: None Reported - Past Family History Mother Family Medical History: Liver Disease Additional Family Medical History / Comment(s): 2nd generation agent orange exposure, manic depression, <Orlando Michaels - Last Filed: 09/13/23 06:13> General Exam Limitations: no limitations General appearance: alert, in no apparent distress Head exam: Present: atraumatic, normocephalic Eye exam: Present: normal appearance, PERRL Neck exam: Present: normal inspection. Absent: tenderness, meningismus Respiratory exam: Present: normal lung sounds bilaterally. Absent: respiratory distress, wheezes Cardiovascular Exam: Present: normal rhythm, tachycardia GI/Abdominal exam: Present: soft, tenderness (Right upper quadrant). Absent: distended, guarding, rebound Extremities exam: Present: normal inspection, normal capillary refill Neurological exam: Present: alert, oriented X3, CN II-XII intact. Absent: motor sensory deficit Psychiatric exam: Present: normal affect, normal mood Skin exam: Present: warm, dry, intact. Absent: cyanosis, diaphoretic <Orlando Michaels Bereket - Last Filed: 09/13/23 06:13> Course Vital Signs 09/13/23 09/13/23 09/13/23 03:38 05:45 07:25 Temperature 100.4 F H 98.7 F 98.6 F Pulse Rate 116 H 89 Respiratory 16 16 Rate Blood Pressure 111/69 94/61 O2 Sat by Pulse 98 100 Oximetry 09/13/23 09:29 Temperature 98.1 F Pulse Rate 105 H Respiratory 16 Rate Blood Pressure 98/63 O2 Sat by Pulse 100 Oximetry Medical Decision Making - Lab Data Result diagrams: 09/13/23 03:59 09/13/23 03:59 <Orlando Michaels Bereket - Last Filed: 09/13/23 06:13> - Lab Data Result diagrams: 09/13/23 03:59 09/13/23 03:59 <Arpita Flores - Last Filed: 09/17/23 06:38> - Medical Decision Making Was pt. sent in by a medical professional or institution (, PA, SLAB P[employer]ER, urgent care, hospital, or custodial...) When possible be specific @ -No Did you speak to anyone other than the patient for history (EMS, parent, family, police, friend...)? What history was obtained from this source @ -No Did you review nursing and triage notes (agree or disagree)? Why? @ -I reviewed and agree with nursing and triage notes Were old charts reviewed (outside hosp., previous admission, EMS record, old EKG, old radiological studies, urgent care reports/EKG's, custodial records)? Report findings @ -No old charts were reviewed Differential Abdominal Pain Women: Appendicitis, Cholecystitis, diverticulosis, ischemic bowel, pancreatitis, hepatitis, UTI, gastroenteritis, AAA, incarcerated hernia, bowel obstruction, constipation, inflammatory bowel, hepatitis, peptic ulcer disease, splenic infarction, perforated viscus, vulvitis, ovarian torsion, PID, kidney stone, placenta abruption, this is not meant to be an all-inclusive list EKG interpreted by me (3pts min.). @ -As above X-rays interpreted by me (1pt min.). @ -None done CT interpreted by me (1pt min.). @ -None done U/S interpreted by me (1pt. min.). @ -None done What testing was considered but not performed or refused? (CT, X-rays, U/S, la bs)? Why? @ -None What meds were considered but not given or refused? Why? @ -None Did you discuss the management of the patient with other professionals (professionals i.e. , PA, [employer] P[employer]ER, lab, RT, psych nurse, medical social worker, acid painter, teacher, event security officer, counseling case manager)? Give summary @ -No Was smoking cessation discussed for >3mins.? @ -No Was critical care preformed (if so, how long)? @ -No Were there social determinants of health that impacted care today? How? (Homelessness, low income, unemployed, alcoholism, drug addiction, transportation, low edu. Level, literacy, decrease access to med. care, shelter, rehab)? @ -No Was there de-escalation of care discussed even if they declined (Discuss DNR or withdrawal of care, Hospice)? DNR status @ -No What co-morbidities impacted this encounter? (DM, HTN, Smoking, COPD, CAD, Cancer, CVA, ARF, Chemo, Hep., AIDS, mental health diagnosis, sleep apnea, morbid obesity)? @Current Was patient admitted / discharged? Hospital course, mention meds given and route, prescriptions, significant lab abnormalities, going to OR and other pert inent info. @Patient care signed out to Dr. Flores awaiting laboratory testing and ultrasound. (Orlando Michaels) Was patient admitted / discharged? Hospital course, mention meds given and route, prescriptions, significant lab abnormalities, going to OR and other pertinent info. @ -Patient signed out to me pending ultrasound read. Ultrasound negative for acute process. Patient reevaluated and reports that she feels improved at this time. He wants to go home. Patient will be started on antibiotics for suspected pyelonephritis. Instructed to follow-up with her doctor. Return for any new or worsening symptoms. Patient agreeable to plan was discharged in stab le condition Undiagnosed new problem with uncertain prognosis? @ -No Drug Therapy requiring intensive monitoring for toxicity (Heparin, Nitro, Insulin, Cardizem)? @ -No Were any procedures done? @ -No Diagnosis/symptom? @ -Acute flank pain, acute pyelonephritis, first trimester Acute, or Chronic, or Acute on Chronic? @ -Acute Uncomplicated (without systemic symptoms) or Complicated (systemic symptoms)? @ -Complicated Side effects of treatment? @ -No Exacerbation, Progression, or Severe Exacerbation? @ -No Poses a threat to life or bodily function? How? (Chest pain, USA, SD, pneumonia, PE, COPD, DKA, ARF, appy, cholecystitis, CVA, Diverticulitis, Homicidal, Suicidal, threat to staff... and all critical care pts) @ -No (Arpita Flores) - Lab Data Lab Results 09/13/23 09/13/23 09/13/23 Range/Units 03:59 03:59 03:59 WBC 11.7 H (3.8-10.6) k/uL RBC 3.49 L (3.80-5.40) m/uL Hgb 11.5 (11.4-16.0) gm/dL Hct 33.2 L (34.0-46.0) % MCV 95.1 (80.0-100.0) fL MCH 32.8 (25.0-35.0) pg MCHC 34.5 (31.0-37.0) g/dL RDW 11.7 (11.5-15.5) % Plt Count 133 L (150-450) k/uL MPV 8.5 Neutrophils % 89 % Lymphocytes % 4 % Monocytes % 5 % Eosinophils % 0 % Basophils % 1 % Neutrophils # 10.4 H (1.3-7.7) k/uL Lymphocytes # 0.4 L (1.0-4.8) k/uL Monocytes # 0.6 (0-1.0) k/uL Eosinophils # 0.0 (0-0.7) k/uL Basophils # 0.1 (0-0.2) k/uL Sodium 130 L (137-145) mmol/L Potassium 3.3 L (3.5-5.1) mmol/L Chloride 102 (98-107) mmol/L Carbon Dioxide 20 L (22-30) mmol/L Anion Gap 8 mmol/L BUN 10 (7-17) mg/dL Creatinine 0.46 L (0.52-1.04) mg/dL Est GFR (CKD-EPI)AfAm >90 (>60 ml/min/1.73 sqM) Est GFR (CKD-EPI)NonAf >90 (>60 ml/min/1.73 sqM) Glucose 141 H (74-99) mg/dL Plasma Lactic Acid Rodolfo (0.7-2.0) mmol/L Calcium 8.8 (8.4-10.2) mg/dL Total Bilirubin 0.5 (0.2-1.3) mg/dL AST 20 (14-36) U/L ALT 15 (4-34) U/L Alkaline Phosphatase 59 (38-126) U/L Total Protein 6.1 L (6.3-8.2) g/dL Albumin 3.5 (3.5-5.0) g/dL Urine Color Yellow Urine Appearance Cloudy H (Clear) Urine pH 6.0 (5.0-8.0) Ur Specific [place] 1.020 (1.001-1.035) Urine Protein 1+ H (Negative) Urine Glucose (UA) Trace H (Negative) Urine Ketones Negative (Negative) Urine Blood Moderate H (Negative) Urine Nitrite Negative (Negative) Urine Bilirubin Negative (Negative) Urine Urobilinogen 2.0 (<2.0) mg/dL Ur Leukocyte Esterase Large H (Negative) Urine RBC 14 H (0-5) /hpf Urine WBC 94 H (0-5) /hpf Ur Squamous Epith Cells 50 H (0-4) /hpf Amorphous Sediment Rare H (None) /hpf Urine Bacteria Rare H (None) /hpf Urine Mucus Few H (None) /hpf 06/04/24 Range/Units 03:59 WBC (3.8-10.6) k/uL RBC (3.80-5.40) m/uL Hgb (11.4-16.0) gm/dL Hct (34.0-46.0) % MCV (80.0-100.0) fL MCH (25.0-35.0) pg MCHC (31.0-37.0) g/dL RDW (11.5-15.5) % Plt Count (150-450) k/uL MPV Neutrophils % % Lymphocytes % % Monocytes % % Eosinophils % % Basophils % % Neutrophils # (1.3-7.7) k/uL Lymphocytes # (1.0-4.8) k/uL Monocytes # (0-1.0) k/uL Eosinophils # (0-0.7) k/uL Basophils # (0-0.2) k/uL Sodium (137-145) mmol/L Potassium (3.5-5.1) mmol/L Chloride (98-107) mmol/L Carbon Dioxide (22-30) mmol/L Anion Gap mmol/L BUN (7-17) mg/dL Creatinine (0.52-1.04) mg/dL Est GFR (CKD-EPI)AfAm (>60 ml/min/1.73 sqM) Est GFR (CKD-EPI)NonAf (>60 ml/min/1.73 sqM) Glucose (74-99) mg/dL Plasma Lactic Acid Rodolfo 2.0 (0.7-2.0) mmol/L Calcium (8.4-10.2) mg/dL Total Bilirubin (0.2-1.3) mg/dL AST (14-36) U/L ALT (4-34) U/L Alkaline Phosphatase (38-126) U/L Total Protein (6.3-8.2) g/dL Albumin (3.5-5.0) g/dL Urine Color Urine Appearance (Clear) Urine pH (5.0-8.0) Ur Specific [place] (1.001-1.035) Urine Protein (Negative) Urine Glucose (UA) (Negative) Urine Ketones (Negative) Urine Blood (Negative) Urine Nitrite (Negative) Urine Bilirubin (Negative) Urine Urobilinogen (<2.0) mg/dL Ur Leukocyte Esterase (Negative) Urine RBC (0-5) /hpf Urine WBC (0-5) /hpf Ur Squamous Epith Cells (0-4) /hpf Amorphous Sediment (None) /hpf Urine Bacteria (None) /hpf Urine Mucus (None) /hpf Disposition <Orlando Michaels - Last Filed: 09/13/23 06:13> Is patient prescribed a controlled substance at d/c from ED?: No Time of Disposition: 08:32 <Arpita Flores - Last Filed: 09/17/23 06:38> Clinical Impression: Pyelonephritis affecting in first trimester, Flank pain, Pyrexia Disposition: HOME SELF-CARE Condition: Stable Instructions (If sedation given, give patient instructions): Kidney Infection (ED) Additional Instructions: Please follow-up with your [facility]. Have them retest your urine to ensure the infection has cleared Prescriptions: Cephalexin [Keflex] 500 mg PO Q6HR 1 Days #40 cap Referrals: Nonstaff,Physician [Primary Care Provider] - 1-2 days
[2023-09-13 06:06] LABS: ALT 15 U/L (4-34); AST 20 U/L (14-36); African American GFR (CKD) >90 (>60 ml/min/1.73 sqM); Albumin 3.5 g/dL (3.5-5.0); Alkaline Phosphatase 59 U/L (38-126); Anion Gap 8 mmol/L; Blood Urea Nitrogen 10 mg/dL (7-17); Calcium 8.8 mg/dL (8.4-10.2); Carbon Dioxide 20 mmol/L (22-30); Chloride 102 mmol/L (98-107); Glucose 141 mg/dL (74-99); Non-African American GFR(CKD) >90 (>60 ml/min/1.73 sqM); Potassium 3.3 mmol/L (3.5-5.1); Sodium 130 mmol/L (137-145); Total Bilirubin 0.5 mg/dL (0.2-1.3); Total Protein 6.1 g/dL (6.3-8.2)
[2023-09-13 06:31] LABS: Amorphous Sediment,Urine Rare /hpf; Appearance,Urine Cloudy (Clear); Bacteria,Urine Rare /hpf; Bilirubin,Urine Negative (Negative); Blood,Urine Moderate (Negative); Color,Urine Yellow; Glucose,Urine (UA) Trace (Negative); Ketones,Urine Negative (Negative); Leukocyte Esterase,Urine Large (Negative); Mucus,Urine Few /hpf; Nitrite,Urine Negative (Negative); Protein,Urine 1+ (Negative); RBC,Urine 14 /hpf (0-5); Squamous Epithelial Cell,Urine 50 /hpf (0-4); WBC,Urine 94 /hpf (0-5)
--- NOTE | 2023-09-13 08:10 | US ---
EXAMINATION TYPE: US abd limited kidneys/bladder DATE OF EXAM: 09/13/2023 COMPARISON: NONE CLINICAL INDICATION: Female, 27 years old with history of ab pain/fever; Patient is . Patien t states right side pain. TECHNIQUE: Multiple sonographic images of the right upper quadrant, bilateral kidneys, and bladder ar e obtained. FINDINGS: EXAM MEASUREMENTS: Liver Length: 14.3 cm Gallbladder Wall: 0.1 cm CBD: 0.4 cm Right Kidney: 12.3 x 6.8 x 6.3 cm Left Kidney: 11.8 x 5.5 x 5.7 cm Pancreas: wnl Liver: wnl Gallbladder: Folds seen. No abnormal distention, wall thickening, pericholecystic fluid, or shadowin g calculi. CBD: wnl Right Kidney: Slightly prominent renal pelvis. No calyceal dilatation to suggest prashanth hydronephrosis . Left Kidney: Upper medial echogenic circular lesion in renal cortex= 1.0 x 1.0 x 0.9 cm Bladder: Distended, anechoic, no gross abnormality. Bilateral Jets not seen Partially visualized intrauterine . IMPRESSION: 1. 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 6 month follow-up renal ultrasound to reassess. 2. Mild right-sided pelviectasis. Probably transient. No calyceal dilatation to suggest hydronephrosi s. 3. No gallstones or biliary ductal dilatation.
[2023-09-13 09:31] VITALS: BP 98/63; PULSE 105; TEMP 98.1
== END 2023-09-13 09:38 | disposition home or self-care (01) ==
LOC: EC 03:36
DX: O23.01 Infections of kidney in pregnancy, first trimester (principal); N28.89 Other specified disorders of kidney and ureter; O99.331 Smoking (tobacco) complicating pregnancy, first trimester; F17.200 Nicotine dependence, unspecified, uncomplicated; Z3A.10 10 weeks gestation of pregnancy
CPT/HCPCS: 36415; 80053; 83605; 85025; 81001; 87040; 87086; 76705; 76770; 99284; 96365; 96361; J0696

== ENCOUNTER 2024-04-04 07:05 | Inpatient (IN) | payer OTHER ==
[2024-04-04] MEDS: LACTATED RINGERS 1,000 ML IV SCH (07:10)
[2024-04-04] MEDS ORDERED: miSOPROStoL 200 MCG TAB RECTAL PRN (07:14)
[2024-04-04] MEDS ORDERED: CARBOPROST TROMETHAMINE 250 MCG/ML 1 ML AMP IM PRN (07:14)
[2024-04-04] MEDS ORDERED: METHYLERGONOVINE 0.2 MG/ML 1 ML AMP IM PRN (07:14)
[2024-04-04] MEDS ORDERED: LIDOCAINE 0.5% (PF) 5 MG/ML (50 ML SDV) SQ PRN (07:14)
[2024-04-04] MEDS ORDERED: TERBUTALINE 1 MG/ML VIAL SQ PRN (07:14)
[2024-04-04] MEDS ORDERED: OXYTOCIN 10 UNIT/ML 1 ML VIAL IM PRN (07:14)
[2024-04-04] MEDS ORDERED: TRANEXAMIC 1,000 MG/100ML-NACL 1,000 MG in EMPTY BAG 1 BAG IV PRN (07:14)
[2024-04-04] MEDS ORDERED: miSOPROStoL 200 MCG TAB PO PRN (07:14)
--- NOTE | 2024-04-04 07:51 | P.HPOB ---
History of Present Illness H&P Date: 04/04/24 Chief Complaint: Active labor Ms. Horan is a 28 year old at 40 weeks and 1 day with EDC of 04/03/2024 by LMP consistent with 17 week US. Her has been complicated by amphetamine use with positive UDS at 17 weeks. She has been working to quit throughout the . The patient also tested positive for Chlamydia at 35 weeks, reportedly took the antibiotics, but then tested positive again on 03/29. As of 04/03/24 at her office visit she nor her partner had yet completed the repeat course of antibiotics to treat chlamydia. The patient states she picked them up yesterday and was planning to take them yesterday. The patient is also Rh negative, for which she received Rhogam at 28 weeks. The fetus is estimated in the 83%ile based on a 32 week growth US. 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 Obstetric history: 3 FTVD, 1 SAB work-up: A negative blood, antibody screen negative, rubella immune, VDRL non-reactive, HBsAg negative, HIV negative, HCV non-reactive, gonorrhea negative, chlamydia positive, UDS positive for amphetamines, 1 hour GTT wnl, GBS negative. 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 History of Any Multi-Drug Resistant Organisms: None Reported Past Surgical History: Tonsillectomy Additional Past Surgical History / Comment(s): ear tubes Past Anesthesia/Blood Transfusion Reactions: No Reported Reaction Past Psychological History: Anxiety, Depression Smoking Status: Current every day smoker Past Alcohol Use History: None Reported Past Drug Use History: None Reported - Past Family History Mother Family Medical History: Liver Disease Additional Family Medical History / Comment(s): 2nd generation agent orange exposure, manic depression, Medications and Allergies Home Medications Medication Instructions Recorded Confirmed Type Vit No.179/Iron/Folic 1 tablet PO DAILY 07/30/22 08/10/22 History [ Tablet] Cephalexin [Keflex] 500 mg PO Q6HR 1 Days #40 cap 09/13/23 Rx Allergies Allergy/AdvReac Type Severity Reaction Status Date / Time No Known Allergies Allergy Verified 04/04/24 07:14 Exam Intake and Output 1204/04/24 04/04/24 22:59 06:59 14:59 Other: Weight 72.121 kg Focused physical exam is performed. This is a healthy-appearing in no apparent distress. Breathing is non-labored. Abdomen is gravid and non-tender. Cervical exam is complete and -1 station. AROM is undertaken with clear fluid noted. Extremities non-tender and non-edematous. heart tones are Category I and tocometer is graphing contractions every 2-4 minutes. Assessment and Plan Assessment: 28 year old at 40 weeks and 1 day presenting in active labor Plan: Admit, clear liquid diet, expectant management, anticipate vaginal delivery.
[2024-04-04] MEDS ORDERED: diphenhydrAMINE 50 MG/ML 1 ML VIAL IVP PRN ×2 (07:55)
[2024-04-04] MEDS ORDERED: diphenhydrAMINE 50 MG CAP PO PRN (07:55)
[2024-04-04] MEDS ORDERED: HYDROCORTISONE 2.5% RECTAL CREAM 30 GM TUBE RECTAL PRN (07:55)
[2024-04-04] MEDS ORDERED: ZOLPIDEM 5 MG TAB PO PRN (07:55)
[2024-04-04] MEDS ORDERED: BENZOCAINE/MENTHOL SPRAY 1 GM/SPRAY AEROSOL TOPICAL PRN (07:55)
[2024-04-04] MEDS ORDERED: LANOLIN CREAM 1 GM TUBE TOPICAL PRN (07:55)
[2024-04-04] MEDS ORDERED: diphenhydrAMINE 25 MG CAP PO PRN (07:55)
[2024-04-04] MEDS ORDERED: Rhogam IMMUNE GLOBULIN 1,500 UNIT/1 ML IM ONE (07:55)
[2024-04-04] MEDS ORDERED: SIMETHICONE 80 MG CHEWABLE PO PRN (07:55)
--- NOTE | 2024-04-04 07:55 | P.PROBDLV ---
Vaginal Delivery Note - . Vaginal Delivery Note: DATE OF SERVICE: 04/04/2025 PROCEDURE: Normal Vaginal Delivery ATTENDING: Dr. Romina Almaraz MD ESTIMATED BLOOD LOSS: 300 mL FINDINGS: VMI, Apgars 9/9. Weight 8 pounds, 12 ounces. PROCEDURE: Ms. Horan is a 28 year old at 40 weeks and 1 day presenting to labor and delivery in active labor and completed dilated. The has been complicated by methamphetamine use, Rh negative status, and limited care. For further details, please review the admitting H&P. A viable male infant was delivered at 722. The infant was placed on the maternal abdomen and bulb suctioned. The infant was noted to be spontaneously crying. Cord was clamped and cut after a 60-second delay. The was handed off to the pediatric team. Placenta was delivered whole with gentle cord traction. Oxytocin was started to facilitate uterine tone. Uterine fundus was found to be firm and below the umbilicus upon fundal massage. Thorough examination of the cervix, vagina, periurethral area, and perineum revealed no lacerations. The patient is stable and allowed to begin the bonding process.
[2024-04-04] MEDS: OXYTOCIN 30 UNITS/500 ML NS 30 UNIT in SALINE 1 500ML.BAG IV SCH (07:56)
[2024-04-04] MEDS ORDERED: ACETAMINOPHEN TAB 500 MG TAB PO SCH (08:00)
--- NOTE | 2024-04-04 08:09 | P.PN ---
Progress Note - Text Progress Note Date: 04/04/24 The patient is planning to leave AGAINST MEDICAL ADVICE. She is also planning to sign the baby out AMA. She is refusing any bloodwork or urine to be sent on herself of the infant. I counseled the patient about risk of bleeding, infection, and sequalae from those complications if she leaves prematurely. I discussed with the patient that this baby requires more medical care than the average because of RADHA. She and her mother state that they have done their research and "know what to watch" for with the baby at home. All questions are answered. The patient will leave AGAINST MEDICAL ADVICE.
[2024-04-04] MEDS: IBUPROFEN 800 MG TAB PO SCH (08:21)
[2024-04-04 09:32] VITALS: RESP 17
[2024-04-04] MEDS: SENNOSIDES-DOCUSATE SODIUM 1 EACH TAB PO SCH (09:50)
[2024-04-04 11:43] VITALS: BP 120/87; PULSE 83; TEMP 97.5
== END 2024-04-04 11:35 | disposition left against medical advice (07) | DRG 806 ==
LOC: FBPOP 07:05 → 4FBP 07:13
PROVIDERS: ADMIT Obstetrics & Gynecology; ATTEND Obstetrics & Gynecology
PROC: 10E0XZZ Delivery of Products of Conception, External Approach (ICD-10-PCS; principal; 2024-04-04)
PROC: 3E033VJ Introduction of Other Hormone into Peripheral Vein, Percutaneous Approach (ICD-10-PCS; 2024-04-04)
PROC: 10907ZC Drainage of Amniotic Fluid, Therapeutic from Products of Conception, Via Natural or Artificial Opening (ICD-10-PCS; 2024-04-04)
DX: O48.0 Post-term pregnancy (principal); O98.32 Other infections with a predominantly sexual mode of transmission complicating childbirth; Z37.0 Single live birth; O99.324 Drug use complicating childbirth; Z53.29 Procedure and treatment not carried out because of patient's decision for other reasons; Z3A.40 40 weeks gestation of pregnancy; Z67.91 Unspecified blood type, Rh negative; O99.344 Other mental disorders complicating childbirth; O99.334 Smoking (tobacco) complicating childbirth; F32.A Depression, unspecified; F15.90 Other stimulant use, unspecified, uncomplicated; F41.9 Anxiety disorder, unspecified; A74.9 Chlamydial infection, unspecified; F17.210 Nicotine dependence, cigarettes, uncomplicated; O26.893 Other specified pregnancy related conditions, third trimester
CPT/HCPCS: 59025; 99213